=== PATIENT | male | born 1980 | race Caucasian/White ===

== ENCOUNTER → 2021-08-23 | Outpatient (CLI) | payer OTHER ==
[~2021-08-23] MED LIST: CARV12.511 PO; EMPA10TA PO; GADOTERATE 5 MMOL/10ML VIAL. INT ART ONE; GLIP5TAB10 PO; INSU100V13 SQ; IOHEXOL 300 MG/ML 50 ML VIAL. INT ART ONE; LIDOCAINE 1% Multi-Dose 20 ML VIAL. ID ONE; LIRA0.6P2 SQ; LISI5TAB15 PO; METF500T16 PO
--- NOTE | 2021-08-23 15:21 | KCIC ---
Examination: MRI right shoulder arthrogram HISTORY: History of right shoulder instability, history of shoulder dislocation COMPARISON: None available Technique: Multiplanar, multisequence MR imaging of the right shoulder performed after arthrogram inj ection FINDINGS: The long head of the biceps tendon within the bicipital groove. The attachment of the long head the b iceps tendon to the superior labral anchor grossly appears intact. The attachment of the subscapulari s and supraspinatus and infraspinatus tendon grossly appears intact. There is mild cortical depression of the posterior lateral humerus head is measuring 6 mm with tiny c ortical focus and surrounding trabecular edema likely Hill-Sachs lesion from recent shoulder dislocat ion.. 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 The acromion is type II. The muscle bulk grossly appears unremarkable. IMPRESSION: 1. Mild cortical depression of the posterior lateral humerus head is measuring 6 mm with tiny cortic al focus and surrounding trabecular edema likely Hill-Sachs lesion from recent shoulder dislocation. 2. 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 Recommend CT shoulder for better evaluation of the bony defect. Electronically signed by: Nick Taylor MD (08/23/2021 3:19 PM) [id number]
--- NOTE | 2021-08-23 16:59 | KCIC ---
Examination: Right Shoulder Arthrogram: Indications: Right shoulder instability. Procedure: Risks, benefits and complications including bleeding, infection, blood vessel damage or j oint infection were discussed with the patient. Questions were answered and consent form signed. The patient was placed supine on the fluoroscopy table with the shoulder slightly externally rotated. Bony landmarks were used to plan for fluoroscopic injection. The patient was carefully prepped and draped in a sterile fashion. Using fluoroscopic guidance, local anesthetic and a 22 gauge needle th e joint space was entered. Intra-articular location was confirmed as approximately 12cc mixture of 5 mL of Omnipaque 300, 5 mL of lidocaine, 10 mL saline and 0.1 mL clariscan was injected to distend the shoulder joint. The procedure was well tolerated and the patient was sent to MRI. Impression: Status post fluoroscopic guided arthrogram in preparation for MRI with contrast. Total fluoroscopic time 20 seconds. Total fluoroscopic images 1. Electronically signed by: Nick Taylor MD (08/23/2021 4:57 PM) [id number]
== END | disposition home or self-care (01) ==
LOC: KCIC 12:42
PROVIDERS: ATTEND Orthopaedic Surgery
DX: M25.311 Other instability, right shoulder (principal); S43.491A Other sprain of right shoulder joint, initial encounter; Z79.4 Long term (current) use of insulin; Z79.899 Other long term (current) drug therapy; X58.XXXA Exposure to other specified factors, initial encounter; Y93.89 Activity, other specified; Y92.89 Other specified places as the place of occurrence of the external cause; Y99.8 Other external cause status
CPT/HCPCS: 23350; 73222; 77002; A9575; J3490; Q9967